=== PATIENT | male | born 1960 | race African-American/Black ===

== ENCOUNTER 2016-11-17 15:08 | Emergency (ER) | payer OTHER ==
--- NOTE | ~2016-11-17 | CR210 ---
[facility] A Service of [facility] & [facility] RADIOLOGY TEXT RESULTS PATIENT: LANE SUMMERS LOCATION: [facility] : 64 UNIT #: [id number] AGE: [address]: Jennifer Tom SEX: M ORDER DR: [id number] [facility] [address] [place], [place] [address] [id number] MR#: [id number] Acc #: [id number] NAME: LANE SUMMERS : 1960 SEX: M STUDY DATE/TIME: 11/17/2016 16:08 UNIT: [facility] ROOM: STUDY DESCRIPTION: CR Ribs Uni 2 View W PA Ch Lt Attending Physician: Jennifer Tom P.A.-C. Ordering Physician: Jennifer Tom P.A.-C. Primary Care Physician: Primary Care Physician No MEDICAL IMAGING REPORT This report is preliminary unless electronic signature is present EXAM Left rib series, November 17, 2016 HISTORY Trauma; hurt ribs and hip by lifting object, pain in upper posterior ribs, pain in lateral and posterior left hip; happened today. FINDINGS AP radiograph of chest presented with AP and oblique views of the left ribs. No prior studies for comparison. No acute fracture seen. Multiple old, healed right rib fractures. Heart and mediastinum normal in size and contour. The lungs are well inflated bilaterally. There is no evidence of acute infectious or inflammatory disease, pleural effusion or pneumothorax. Bilateral nipple shadow artifacts over the lower thorax. No suspicious nodule. Bowel gas pattern in visualized abdomen and pelvis nonspecific. Air-distended but not pathologically dilated loops of small bowel are seen. Air and stool seen throughout colon. No free air. Calcified phleboliths in the pelvis. Dictated by... Devon Shen M.D. THIS IS AN ELECTRONICALLY VERIFIED REPORT Devon Shen M.D. at 11/18/2016 9:40 PM LIT/estevan TD: 11/17/2016 20:46 JOB #: [id number] MEDICAL IMAGING REPORT Page 1 of 1 COPY
--- NOTE | ~2016-11-17 | CR150 ---
[facility] A Service of [facility] & [facility] RADIOLOGY TEXT RESULTS PATIENT: LANE SUMMERS LOCATION: [facility] : [birth year] UNIT #: [id number] AGE: [address]: Jennifer Tom SEX: M ORDER DR: [id number] [facility] [address] [place], [place] [address] [id number] MR#: [id number] Acc #: [id number] NAME: LANE SUMMERS : 1960 SEX: M STUDY DATE/TIME: 11/17/2016 16:25 UNIT: [facility] ROOM: STUDY DESCRIPTION: CR Hip Min 2 Views Lt Attending Physician: Jennifer Tom P.A.-C. Ordering Physician: Jennifer Tom P.A.-C. MEDICAL IMAGING REPORT This report is preliminary unless electronic signature is present EXAM Left hip HISTORY Injured hip lifting object today, complains of posterolateral left hip pain. FINDINGS AP pelvis and frog lateral view of the left hip demonstrates no fracture or dislocation. Minimal sclerosis and degenerative change along the acetabular margin but no significant joint space loss. Pelvic calcifications and scrotal calcifications, most likely vascular in nature. Evidence of arterial vascular disease. IMPRESSION No acute findings. Dictated by... Diana Gillis M.D. THIS IS AN ELECTRONICALLY VERIFIED REPORT Diana Gillis M.D. at 11/18/2016 7:26 AM KATE/kam TD: 11/17/2016 20:36 JOB #: [id number] MEDICAL IMAGING REPORT Page 1 of 1 COPY
== END 2016-11-17 17:30 | disposition home or self-care (01) ==
LOC: CED 15:08 → CFTX 15:08
DX: S76.012A Strain of muscle, fascia and tendon of left hip, initial encounter (principal); S29.011A Strain of muscle and tendon of front wall of thorax, initial encounter; X50.0XXA Overexertion from strenuous movement or load, initial encounter; Y92.69 Other specified industrial and construction area as the place of occurrence of the external cause; Y99.0 Civilian activity done for income or pay
CPT/HCPCS: 71101; 73502; 99283